=== PATIENT | female | born 1985 | race Hispanic/Latino ===

== ENCOUNTER 2017-05-24 23:09 | Emergency (ER) | payer SELFPAY ==
[2017-05-24 23:25] VITALS: BMI 27.3
[2017-05-24] MEDS: Lactated Ringer's 1,000 ML IV SCH (23:53)
[2017-05-25 00:11] LABS: BASO % 0.1 % (0.0-2.0); EOS # 0.1 K/uL (0.0-0.7); EOS % 0.5 % (0.0-4.0); HEMATOCRIT 31.3 % (34.0-47.0); LYMPH # 2.8 K/uL (1.0-4.3); LYMPH % 18.1 % (20.0-40.0); MEAN CORPUSCULAR HEMOGLOBIN 32.3 pg (27.0-31.0); MEAN PLATELET VOLUME 7.5 fl (7.2-11.7); MONO % 6.4 % (0.0-10.0); NEUT # 11.6 K/uL (1.8-7.0); NEUT % 74.9 % (50.0-75.0); RED CELL DISTRIBUTION WIDTH 13.8 % (11.5-14.5); WHITE BLOOD COUNT 15.5 K/uL (4.8-10.8)
[2017-05-25 00:13] LABS: RBC URINE 1 /hpf (0-3); URINE BILIRUBIN NEGATIVE (NEGATIVE); URINE BLOOD NEGATIVE (NEGATIVE); URINE COLOR YELLOW (YELLOW); URINE GLUCOSE (UA) NEG (Normal); URINE KETONE TRACE mg/dL (NEGATIVE); URINE LEUKOCYTE ESTERASE TRACE Leu/uL (Negative); URINE PROTEIN NEGATIVE (NEGATIVE); URINE UROBILINOGEN 0.2-1.0 mg/dL (0.2-1.0); WBC URINE 4 /hpf (0-5)
[2017-05-25 00:23] LABS: ALB/GLOB RATIO 1.2 (1.0-2.1); ALKALINE PHOSPHATASE 77 U/L (38-126); ALT/SGPT 65 U/L (9-52); AST/SGOT 78 U/L (14-36); BILIRUBIN,TOTAL 0.2 mg/dl (0.2-1.3); BLOOD UREA NITROGEN 5 mg/dl (7-17); CALCIUM 8.9 mg/dL (8.4-10.2); CARBON DIOXIDE 16 mmol/L (22-30); CHLORIDE 109 mmol/L (98-107); GFR AFRICAN-AMERICAN > 60; GLUCOSE,RANDOM 86 mg/dL (65-105); POTASSIUM 3.7 MMOL/L (3.6-5.0); SODIUM 136 mmol/l (132-148); TOTAL PROTEIN 6.7 G/DL (6.3-8.2)
[2017-05-25] MEDS: Lactated Ringer's 1,000 ML IV SCH (00:30)
--- NOTE | 2017-05-25 00:42 | OBHP ---
Datetime: 05/25/2017 00:34 IP Adm Impression: , intrauterine ; No Active Labor; Intact Membranes IP Admit Plan: Observation/Evaluation Admit Comment, IP Provider: The patient is a 32-year-old 4 para 3 last menstrual period and October estimated gestational age approximately 25 weeks. Patient was brought in by EMS and [employer] [employer] patient and partner were arrested. The patient was brought to the police station started experiencing abdominal discomfort so she was brought in for medical evaluation. Patient repor ts good movement no vaginal bleeding patient reports vaginal discharge. Patient has had no pren atal care. Past medical history none Past surgical history none Allergic to sulfa Medications vitamins Obstetrical history 3 normal spontaneous vaginal deliveries Review of systems patient denies headache chest pain shortness of breath palpitations nausea vomit ing constipation diarrhea heat or cold intolerance easy bruisability musculoskeletal or neurological complaints Vital signs stable afebrile Physical exam see notes Intrauterine at 25 weeks No care Observation, IV fluid hydration, CBC and complete metabolic panel,UA Patient concerned about partner recent arrest. We'll observe patient social service consult Pelvic Type - PN: Adequate Extremities - PN: Normal Abdomen - PN: Normal Back - PN: Normal Breast - PN: Not Done Lungs - PN: Normal Heart - PN: Normal Thyroid - PN: Normal Neurologic - PN: Normal HEENT - PN: Normal General - PN: Normal FHR - Baseline A Provider: 145 Comments, ACOG Physical Exam: Sterile speculum exam Cervix long closed posterior positive yeast infe ction Gestation - Est Wks by US: 25.0 Pool Provider: Negative Vital Signs Provider: Reviewed IP Chief Complaint: Suspected ruptured membranes; Maternal discomfort NICHD Decel Fetus A IP Provider: None Dilatation, Provider: 0 Effacement, Provider: 0 Station, Provider: -2 Genitourinary Exam: Normal DTRs - PN: Normal
--- NOTE | 2017-05-25 15:34 | US ---
PROCEDURE: HISTORY: Gestational age Gestational age. Last menstrual period was reported approximately 11/19/2016, suggesting gestational age of 26 weeks 5 days. COMPARISON: None available TECHNIQUE: Transabdominal, transpelvic ultrasonography was performed for evaluation of gestation. Examination performed specifically for gestational age with limited biometry performed. FINDINGS: UTERUS: A single viable intrauterine gestation is identified with the fetus in cephalic lie. Feels corrective is recorded up to 140 beats per minute. Posterior fundal placenta is identified. No placental abruption or previa is identified. Cervical length is normal at 4.5 cm with a closed internal os identified. The following biometry was obtained: Biparietal diameter 6.9 cm corresponds to 27 weeks 5 days. Head circumference 25.6 cm corresponds to 27 weeks 2 days. Abdominal circumference 23.3 cm corresponds to 27 weeks 5 days. Femur length 5.1 cm corresponds to 27 weeks 2 days. Average ultrasonic age is 27 weeks 5 days, which agrees with menstrual dates. Estimated date of delivery 08/19/2017. Amniotic fluid volume subjectively appears unremarkable. anatomical survey is quite limited. The stomach is identified. No prominent hydrocephalus appreciable. Due to lie, the spine is poorly seen. Four-chamber heart view is not submitted. A 3 vessel umbilical cord is identified. Urinary bladder is not imaged nor are images of the the kidneys. CERVIX: Cervical length measures 4.5 cm. Closed internal os. IMPRESSION: A single viable intrauterine gestation identified with average from the age of 27 weeks 5 days with cardiac activity 140 beats per minute in cephalic lie. No placental abruption or previa. Ultrasound dates agree with menstrual dates. anatomic survey was very limited in this examination. Follow-up complete ultrasound can be performed to include standard anatomical survey.
--- NOTE | 2017-05-25 16:03 | OBHP ---
Datetime: 05/25/2017 14:45 IP Adm Impression: , intrauterine IP Admit Plan: Observation/Evaluation; Discharge home Admit Comment, IP Provider: Pt is seen and examined. She is feeling well, tolerting PO diet, ambulat ing, monitor is reactive. Patient was seen by social work associate and they have extensively discussed plan with patient. Pts boyfriend is incarcinated and pt does not have anywhere to go in [place]. Patient agreed to go home to her mother in [place]. Her mother has paid for her ticket and pt will be taking the next bus. Denies headache, chest pain, dyspnea, abdominal pain, n/v/d/c and remains afebrile. +FM , -LOF, -VB and no contractions. Patient given PTL precautions DVT precautions given pt notified to follow up with a doctor for care Pt encouraged to continue PNV and to quit smoking Pt seen and discussed with Dr. Heladio Hudson PGY I OB H addendum: Patient seen and examined by me with resident. Agree with above assessment and plan. Impression: No care Positive THC on urine drug screen Plan: Patient to return to [place]. Patient's mother has purchased to get for her to go by bus. Risks of DVT during trip discussed with patient and importance of ambulation every 3 hours reviewed Risks of tobacco and discussed with patient including delivery placental abrupti on demise. Patient advised to obtain [id number] vitamins and iron supplementation. Patient given copy of ultrasound report and advised to obtain care ANEESH. Pelvic Type - PN: Adequate Extremities - PN: Normal Abdomen - PN: Normal Back - PN: Not Done Breast - PN: Not Done Lungs - PN: Normal Heart - PN: Normal Thyroid - PN: Not Done Neurologic - PN: Normal HEENT - PN: Normal General - PN: Normal FHR - Baseline A Provider: 140 Comments, ACOG Physical Exam: OB US: EGA by approximate LMP is 26 weeks and 5 days Estimated gestational age by ultrasound is 27 weeks and 5 days. GAGE 08/19/2017 Cervix length 4.5 cm internal os closed Vital Signs Provider: Reviewed; Within Normal Limits IP Chief Complaint: Maternal discomfort NICHD Variability Prov Fetus A: Moderate 6-25bpm NICHD Accel Fetus A IP Provider: [id number] FHR Category Provider Fetus A: Category I Dilatation, Provider: 0 Effacement, Provider: 0 Station, Provider: -4 Genitourinary Exam: Not Done DTRs - PN: Normal
[2017-05-25 20:38] VITALS: BP 115/64; PULSE 94; RESP 18; TEMP 98.3; O2SAT 100
== END 2017-05-25 16:37 | disposition home or self-care (01) ==
LOC: H.EROB2 23:09 → H.L&D 05-25 09:10 → H.EROB2 05-25 16:37
DX: O47.02 False labor before 37 completed weeks of gestation, second trimester (principal); Z3A.25 25 weeks gestation of pregnancy; O09.32 Supervision of pregnancy with insufficient antenatal care, second trimester
CPT/HCPCS: 76815; 80053; 81003; 85025; 99284; G0480; J7120

== ENCOUNTER 2017-05-26 05:43 | Emergency (ER) | payer SELFPAY ==
--- NOTE | 2017-05-26 08:16 | OBHP ---
Datetime: 05/26/2017 06:40 IP Adm Impression: , intrauterine ; No Active Labor; Intact Membranes IP Admit Plan: Observation/Evaluation Admit Comment, IP Provider: 32-year-old F , no PNC. US done 05/25 was unremarkable and 27.6 GA, E DD 08/19/17. pt was brought in by obgyn specialist to [facility], pt is c/o abdominal pain and b/l lower extremity pain and weakness. as per pt all started b/c she had to walk around whole city yesterday to get a bus for [place] to go to her mother place to live with her. pt had [employer] yesterday, vomited 2 hrs ago bu t no symptoms since then. Patient reports good movement no vaginal bleeding/LOF/CTX U/s result appreciated (05/25)Pt is currently 27.5 wks IUP, GAGE is 08/19/2017. Cervix is closed and measuing 4.9cm. Past medical history none Past surgical history none Allergic to sulfa Medications vitamins Obstetrical history 3 normal spontaneous vaginal deliveries ROS; patient denies headache chest pain shortness of breath palpitations nausea constipation diarr hea heat or cold intolerance easy bruisability musculoskeletal or neurological complaints Vital signs stable afebrile PE: unremarkable A/P: 32-year-old F , no PNC. US done 05/25 was unremarkable and 27.6 GA, GAGE 08/19/17. No care, pt d/c yesterday from [facility] pt was in [place] yesterday and labs were done Observation We'll observe patient and social service consult - Case disccused with Dr. Leija --- Dann Howard, PGY-1 [facility] ADDENDUM: pt seen and examined by me. She denies contractions cramps or lower extremity pain at present time . She states she will occasionally feel abdominal discomfort with a change in her position. She denie s ruptured membranes vaginal bleeding. Patient states her mother had Center and insufficient amount o f money and to take the take the bus [place]. Plan Breakfast prior to discharge Patient advised that she has the option to stay in a alf if she does not wish to return to [facility]. labor precautions Pelvic Type - PN: Adequate Extremities - PN: Normal Abdomen - PN: Normal Back - PN: Normal Breast - PN: Normal Lungs - PN: Normal Heart - PN: Normal Thyroid - PN: Normal Neurologic - PN: Normal HEENT - PN: Normal General - PN: Normal FHR - Baseline A Provider: 140 Contraction Comments Provider: none Comments, ACOG Physical Exam: OB US: EGA by approximate LMP is 26 weeks and 5 days Estimated gestational age by ultrasound (05/25) is 27 weeks and 5 days. GAGE 08/19/2017 Cervix length 4.5 cm internal os closed EGA AdmitDate IP: 27.6 Vital Signs Provider: Reviewed; Within Normal Limits IP Chief Complaint: Maternal discomfort NICHD Variability Prov Fetus A: Moderate 6-25bpm NICHD Accel Fetus A IP Provider: [id number] FHR Category Provider Fetus A: Category I NICHD Decel Fetus A IP Provider: None Genitourinary Exam: Normal DTRs - PN: Normal
[2017-05-26 10:33] VITALS: BP 101/60; PULSE 83; RESP 18; TEMP 98
== END 2017-05-26 08:15 | disposition home or self-care (01) ==
LOC: H.EROB2 05:43
DX: O47.03 False labor before 37 completed weeks of gestation, third trimester (principal); Z3A.27 27 weeks gestation of pregnancy